=== PATIENT | male | born 1945 | race Caucasian/White ===

== ENCOUNTER 2019-12-26 14:20 | Emergency (ER) | payer MEDICARE, OTHER ==
[2019-12-26] MEDS ORDERED: Ketorolac 60 MG/2 ML SDV IM ONE (15:14)
[2019-12-26] MEDS ORDERED: Orphenadrine 60 MG/2 ML Inj IM SCH (15:15)
--- NOTE | 2019-12-26 15:18 | EDM.PDOC ---
ED HPI GENERAL MEDICAL PROBLEM - General Chief Complaint: General Stated Complaint: FELL AND HURT BACK Time Seen by Provider: 12/26/19 15:00 Source of Information: Reports: Patient History Limitations: Reports: No Limitations - History of Present Illness INITIAL COMMENTS - FREE TEXT/NARRATIVE: was going up the steps and missed a step and fell backwards and landed on butt. Having increase in low back pain. Denies any pain down legs. No numbness or tingling. States that he has had chronic back pain for many years. Denies any weakness in legs. No other injuries noted. Onset: Today Lower Posterior Back Pain Score (Numeric/FACES): 8 - Related Data Allergies Allergy/AdvReac Type Severity Reaction Status Date / Time No Known Allergies Allergy Verified 12/26/19 14:23 Home Meds: Home Meds . [Unable to Verify Home Med List] 12/26/19 [History] Past Medical History HEENT History: Reports: Impaired Vision Cardiovascular History: Reports: High Cholesterol, Hypertension Other Genitourinary History: Prostate cancer Musculoskeletal History: Reports: Arthritis, Back Pain, Chronic Oncologic (Cancer) History: Reports: Prostate - Past Surgical History HEENT Surgical History: Reports: None Cardiovascular Surgical History: Reports: None Male Surgical History: Reports: Prostatectomy Other Oncologic Surgeries/Procedures: Prostatecomy Social & Family History - Family History Family Medical History: Noncontributory - Tobacco Use Smoking Status *Q: Former Smoker Used Tobacco, but Quit: Yes Month/Year Tobacco Last Used: 1989 - Caffeine Use Caffeine Use: Reports: None - Recreational Drug Use Recreational Drug Use: No ED ROS GENERAL - Review of Systems Review Of Systems: See Below Respiratory: Reports: No Symptoms Cardiovascular: Reports: No Symptoms Musculoskeletal: Reports: Back Pain. Denies: Neck Pain, Leg Pain Skin: Reports: No Symptoms Neurological: Denies: Numbness, Paresthesia ED EXAM, GENERAL - Physical Exam Exam: See Below Exam Limited By: No Limitations General Appearance: Alert, WD/WN, Mild Distress Head: Atraumatic, Normocephalic Respiratory/Chest: No Respiratory Distress, Lungs Clear, Normal Breath Sounds, Chest Non-Tender Cardiovascular: Regular Rate, Rhythm, No Edema Back Exam: Normal Inspection, Vertebral Tenderness (to the lumbar region) Extremities: Normal Range of Motion, No Pedal Edema, Normal Capillary Refill, Slow Capillary Refill Neurological: Alert, Oriented, No Motor/Sensory Deficits Psychiatric: Normal Affect Skin Exam: Warm, Dry, Intact Course - Vital Signs Last Recorded V/S: Last Vital Signs Temp 98.6 F 12/26/19 14:30 Pulse 74 12/26/19 14:30 Resp 20 12/26/19 14:30 BP 151/79 H 12/26/19 14:30 Pulse Ox 97 12/26/19 14:30 - Orders/Labs/Meds Meds: Medications Discontinued Medications Generic Name Dose Route Start Last Admin Trade Name Robert PRN Reason Stop Dose Admin Ketorolac Tromethamine 60 mg 12/26/19 15:14 12/26/19 15:18 Toradol IM 12/26/19 15:15 60 mg ONETIME ONE Administration Orphenadrine Citrate 60 mg 12/26/19 15:15 12/26/19 15:19 Norflex IM 60 mg Q12H MARY ANNE Administration Departure - Departure Time of Disposition: 15:16 Disposition: Home, Self-Care 01 Condition: Good Clinical Impression: Back pain due to injury - Discharge Information *PRESCRIPTION DRUG MONITORING PROGRAM REVIEWED*: Not Applicable *COPY OF PRESCRIPTION DRUG MONITORING REPORT IN PATIENT YANIRA: Not Applicable Instructions: Acute Back Pain, Adult Forms: ED Department Discharge Additional Instructions: norflex twice a day for muscle spasm tylenol or advil as needed for discomfort If pain continues then would need to follow up with PCP. Sepsis Event Note (ED) - Evaluation Sepsis Screening Result: No Definite Risk - Problem List & Annotations (1) Back pain due to injury SNOMED Code(s): 516244113, [id number] Code(s): M54.9 - DORSALGIA, UNSPECIFIED Status: Acute - Problem List Review Problem List Initiated/Reviewed/Updated: Yes
== END 2019-12-26 15:28 | disposition home or self-care (01) ==
LOC: CC.ED 14:20
DX: S39.92XA Unspecified injury of lower back, initial encounter (principal); I10 Essential (primary) hypertension; Z87.891 Personal history of nicotine dependence; W10.9XXA Fall (on) (from) unspecified stairs and steps, initial encounter
CPT/HCPCS: 72100; 96372; 99283-25; J1885; J2360